=== PATIENT | male | born 1945 | race Caucasian/White ===

== ENCOUNTER 2021-10-10 08:10 | Emergency (ER) | payer OTHER ==
[2021-10-10 08:57] VITALS: BMI 28.3
[2021-10-10 09:10] LABS: ACTIVATED PTT 27.6 SECONDS (25.2-36.5); HEMATOCRIT 37.3 % (35.4-49); HEMOGLOBIN 12.9 G/dL (11.7-16.9); MCH 32.8 pg (25.7-33.7); MCHC 34.5 g/dl (32.0-35.9); MEAN CELL VOLUME 95.2 fl (80-96); MEAN PLT VOLUME 7.8 fl (7.5-11.1); PLATELET COUNT 177.2 10^3/uL (134-434); PROTHROMBIN TIME (PATIENT) 11.5 SEC (9.7-13.0); RBC 3.92 10^6/uL (4.00-5.60); WHITE BLOOD COUNT 4.6 10^3/uL (4.0-10.8)
[2021-10-10 09:16] LABS: ALK PHOS 74 U/L (45-117); ANION GAP 6 MMOL/L (8-16); BILIRUBIN,TOTAL 0.8 mg/dl (0.2-1); CALCIUM 8.7 mg/dl (8.5-10); CHLORIDE 110 mmol/L (98-107); CO2 18 mmol/L (21-32); CREATININE 1.9 mg/dl (0.55-1.3); GLUCOSE,RANDOM 192 mg/dl (74-106); MAGNESIUM 1.8 mg/dL (1.8-2.4); SGOT/AST 22 U/L (15-37); SGPT/ALT 23 U/L (13-61); SODIUM 134 mmol/L (136-145); TOT PROT 6.9 g/dl (6.4-8.2)
[2021-10-10] MEDS ORDERED: SODIUM CHLORIDE 0.9% 500 ML INFUS.BAG IV ONE (09:33)
[2021-10-10 10:23] LABS: PLATELET ESTIMATE ADEQUATE
[2021-10-10 10:52] LABS: VENOUS BASE EXCESS -7.8 mmol/L (-2-2); VENOUS O2 SATURATION 97.4 % (70-80); VENOUS PCO2 36.4 mmHg (38-52); VENOUS PH 7.306 (7.310-7.410)
[2021-10-10 14:07] LABS: EPITHELIAL CELLS FEW /hpf
[2021-10-10 17:22] VITALS: RESP 18
[2021-10-10 17:22] LABS: ALBUMIN 4.1 g/dl (3.4-5.0); BILIRUBIN,TOTAL 0.6 mg/dl (0.2-1); CALCIUM 8.7 mg/dl (8.5-10); CREATININE 1.7 mg/dl (0.55-1.3); TOT PROT 7.1 g/dl (6.4-8.2)
[2021-10-11 06:47] VITALS: BP 124/59; PULSE 60; TEMP 97.8
[2021-10-11 08:23] LABS: ALBUMIN 3.5 g/dl (3.4-5.0); BILIRUBIN,TOTAL 0.7 mg/dl (0.2-1); CALCIUM 8.3 mg/dl (8.5-10); CREATININE 1.5 mg/dl (0.55-1.3)
[2021-10-11] MEDS ORDERED: CYANOCOBALAMIN (VITAMIN B-12) 1000 MCG/1 ML VIAL IM ONE (08:45)
[2021-10-11 09:11] LABS: BASO % 0.8 % (0-2.0); EOS % 6.3 % (0-4.5); HEMATOCRIT 35.3 % (35.4-49); HEMOGLOBIN 11.8 GM/dL (11.7-16.9); LYMPH % 28.2 % (8-40); MCH 32.2 pg (25.7-33.7); MCHC 33.5 g/dl (32.0-35.9); MONO % 10.2 % (3.8-10.2); NEUT % 54.5 % (42.8-82.8); PLATELET COUNT 173 10^3/uL (134-434); RBC 3.67 M/mm3 (4.00-5.60); RDW 13.8 % (11.9-15.9)
== END 2021-10-11 09:15 | disposition home or self-care (01) ==
LOC: FER 08:10 → FM/S 12:20
PROC: 3E023GC Introduction of Other Therapeutic Substance into Muscle, Percutaneous Approach (ICD-10-PCS; principal; 2021-10-10)
DX: R41.0 Disorientation, unspecified (principal); R26.89 Other abnormalities of gait and mobility
CPT/HCPCS: 36415; 70450-TC; 70496-TC; 70498-TC; 70551-TC; 71045-TC-FY; 80053; 80061; 80307; 81003; 81015; 82136; 82550; 82553; 82607; 82803; 82962; 83036; 83605; 83735; 83918; 84100; 84439; 84443; 84484; 85025; 85027; 85610; 85730; 86780; 93005; 93880-TC; 96372; 99285-25; C9803-CS; G0378; U0003; U0005